=== PATIENT | female | born 1955 | race Caucasian/White ===

== ENCOUNTER → 2019-06-23 07:09 | Outpatient (CLI) | payer OTHER, SELFPAY ==
[2019-06-23 07:12] LABS: Bacteria 0 SEEN /hpf (None Seen); Mucous, Urine 0 SEEN /hpf (<or=2+); Red Blood Cells-Urine 0 SEEN /hpf (0-5); White Blood Cells 0 SEEN /hpf (0-5)
[2019-06-23 10:01] LABS: Color, Urine Yellow (Yellow); Glucose, Dipstick Normal (Normal); Ketone-Dipstick Negative (Negative); Leukocyte Esterase-Dipstick 25 /ul (Negative); Nitrite-Dipstick Negative (Negative); Occult Blood-Urine Negative /ul (Negative); Protein-Dipstick Negative (Negative); Urine Bilirubin Dipstick Negative (Negative); Urine Clarity Clear (Clear); Urine Urobilinogen Normal (Normal)
[2019-06-23 10:14] LABS: Absolute Lymphocyte Count 1.24 X10^3/uL (0.83-4.51); Absolute Neutrophil Count 3.4 X10^3/uL (2.0-7.7); Basophil# 0.04 X10^3/uL; Basophil% 0.8 % (0-1); Eosinophil# 0.05 X10^3/uL; Hematocrit 41.3 % (37-47); Hemoglobin 13.6 g/dL (12.0-15.0); Lymphocyte # 1.24 X10^3/ul (4.0); Mean Corp Hgb Conc 32.9 g/dL (32-36); Mean Corpuscular Hgb 30.7 pg (27.0-32.0); Mean Corpuscular Volume 93.2 fL (81-99); Mean Platelet Vol. 11.2 fl (6.2-12.0); Monocyte# 0.42 X10^3/uL; Monocyte% 8.1 % (0-10); NRBC Flagged by Analyzer 0 % (0-5); Neutrophil # 3.41 X10^3/uL (2.7-7.7); Neutrophil % 65.9 % (47-70); Platelet Count 219 K/mm3 (150-450); RBC Distribution Width CV 12.5 % (11.6-14.6); Red Blood Count 4.43 M/mm3 (4.2-5.4); White Blood Count 5.2 K/mm3 (4.4-11.0)
[2019-06-23 10:19] LABS: Squamous Epithelial Cells - UA 0-5 SEEN /hpf (5-10)
[2019-06-23 10:24] LABS: Vitamin B12 543 pg/mL (211-911)
[2019-06-23 10:32] LABS: AST(SGOT) 15 U/L (15-37); Alanine Aminotransfer ALT/SGPT 27 U/L (13-56); Albumin, Serum 3.6 g/dL (3.2-5.0); Alkaline Phosphatase 91 U/L (45-117); Anion Gap 7 (5-15); BUN 19 mg/dL (7-18); BUN/Creat Ratio 26.5 RATIO (10-20); Calcium,Total 8.8 mg/dL (8.5-10.1); Chloride 109 mmol/L (98-107); Cholesterol 204 mg/dL (200); Creatinine, Serum 0.72 mg/dL (0.55-1.02); EST Glomerular Filtration Rate 87 mL/min (>60); Est Glom Filt Rate - Afr Amer 105 mL/min (>60); Globulin 3.6 g/dL (2.2-4.2); Glucose 85 mg/dL (74-106); High Density Lipoprotein 85 mg/dL; Potassium 4.1 mmol/L (3.5-5.1); Protein, Total 7.2 g/dL (6.4-8.2); Sodium Level 143 mmol/L (136-145); Thyroid Stim Hormone (TSH) 2.13 uIU/mL (0.358-3.74); Triglycerides 78 mg/dL; Very Low Density Lipoprotein 16 mg/dL (5-40)
[2019-06-26 16:05] LABS: Vitamin B1, Thiamine 186.7 nmol/L (66.5-200.0)
== END ==
PROVIDERS: PCP Family Medicine; Referring Provider Family Medicine; Visit Provider Family Medicine
DX: E53.9 Vitamin B deficiency, unspecified (principal); E55.9 Vitamin D deficiency, unspecified; I10 Essential (primary) hypertension
CPT/HCPCS: 36415; 80053; 80061; 81001; 82306; 82607; 84425; 84443; 85025

== ENCOUNTER → 2019-07-05 08:34 | Outpatient (CLI) | payer OTHER, SELFPAY | PROVIDERS: PCP Family Medicine; Referring Provider Family Medicine; Visit Provider Family Medicine | DX: E53.9 Vitamin B deficiency, unspecified (principal); E55.9 Vitamin D deficiency, unspecified; I10 Essential (primary) hypertension ==

== ENCOUNTER → 2019-07-20 | Outpatient (CLI) | payer OTHER, SELFPAY ==
[2019-07-20 09:59] LABS: Phosphorus 3.3 mg/dL (2.5-4.9)
== END | disposition home or self-care (01) ==
LOC: MFPLAB 08:26
PROVIDERS: PCP Family Medicine; Visit Provider Family Medicine
DX: M85.80 Other specified disorders of bone density and structure, unspecified site (principal)
CPT/HCPCS: 36415; 84100

== ENCOUNTER → 2019-08-09 07:46 | Outpatient (CLI) | payer MEDICARE, SELFPAY ==
--- NOTE | 2019-08-09 07:49 | BI_ITS ---
MAMMOGRAPHY - BILATERAL SCREENING REASON FOR EXAM: Female, 64 years old. Routine annual screening examination. PERTINENT HISTORY: Non-contributory. TECHNIQUE: Digital bilateral breast valeri (3D mammographic acquisition) in the CC and MLO projections. 2-D mediolateral oblique (MLO) and craniocaudad (CC) views of both breasts were obtained. CAD: Full Field Digital Mammography with Computer Added Detection was performed. COMPARISON: Comparison is made with prior outside examination dated July 07, 2016. FINDINGS: Breast Composition: The breasts are heterogeneously dense, which may obscure small masses. There are no dominant masses or suspicious calcifications. There is a 7.5 mm x 5.4 mm well-defined nodule in the slightly upper lateral portion of the left breast. Correlation with ultrasound is recommended. Stable benign-appearing bilateral axillary lymph nodes. No other significant abnormalities are identified. BI/SCREEN MAMM (CAD) W/VALERI BILAT IMPRESSION: 7.5 mm x 5.4 mm well-defined nodule in the upper lateral aspect of the right breast as described. Correlation with ultrasound is recommended. ASSESSMENT CATEGORY: BIRADS Category 0: Incomplete. Need additional imaging evaluation. A letter regarding these results will be sent to the patient by the facility within 30 days. Approximately 10% of breast cancers are not detected by mammography. A normal mammogram should not delay biopsy of a clinically suspicious abnormality. [id number] Electronically Signed: Naga Parks, at 8:18 EDT , Service support ,
--- NOTE | 2019-08-09 08:22 | BD_ITS ---
STUDY: DUAL ENERGY X-RAY ABSORPTIOMETRY / DXA REASON FOR EXAM: Female, 64 years old. QUILT SEWER -- TALES DIURETIC IN BP MED -- HX OF TAKING STEROID MEDS DURING BRAIN RADIATION- GAMMA KNIFE -- TAKES VITAMIN D -- DOES MODERATE AMOUNT OF EXERCISE -- NO STACEY TECHNIQUE: Bone Mineral Density (BMD) measurements of lumbar spine and bilateral hips were obtained. COMPARISON: None. FINDINGS: Lumbar Spine (L1-L4): g/cm2 (1.013) / T-score (-1.4) / Z-score (0.2) Findings are suggestive of osteopenia with a low fracture risk. Increased kyphosis. Left Femur Total: g/cm2 (0.792) / T-score (-1.7) / Z-score (-0.5) Left Femoral Neck: g/cm2 (0.836) / T-score (-1.5) / Z-score (0.0) Right Femur Total: g/cm2 (0.749) / T-score (-2.1) / Z-score (-0.9) Right Femoral Neck: g/cm2 (0.820) / T-score (-1.6) / Z-score (-0.1) BD/Dexa Bone Density Study IMPRESSION: The patient is considered osteopenic as outlined below according to World [employer] Organization (WHO) criteria with a moderate fracture risk. Reference Information: The T-score is the number of standard deviations above or below the standard which is normal for young adults at their peak bone mineral density. The World Health Organization (WHO) interprets the T-scores as follows: Above -1 Normal bone density Between -1 and -2.5 Osteopenia Equal to / or below -2.5 Osteoporosis As a practical clinical guideline, osteopenia may be graded as follows: Mild -1 through -1.5 Moderate -1.6 through -2.0 Severe -2.1 through -2.4 The Z-score is the number of standard deviations above or below age-matched controls. A Z-score of less than -1.5 would be considered abnormal. References: 1. NIH Osteoporosis and Related Bone Diseases http://www.osteo.org 2. International Society for Clinical Densitometry http://www.iscd.org 3. National Osteoporosis Foundation http://www.nof.org Electronically Signed: Naga Parks, at 9:41 EDT , Service support ,
== END ==
PROVIDERS: PCP Family Medicine; Referring Provider Family Medicine; Visit Provider Family Medicine
DX: Z12.31 Encounter for screening mammogram for malignant neoplasm of breast (principal); M85.80 Other specified disorders of bone density and structure, unspecified site
CPT/HCPCS: 77063; 77067; 77080

== ENCOUNTER → 2019-08-18 | Outpatient (CLI) | payer MEDICARE, SELFPAY ==
--- NOTE | 2019-08-18 08:28 | US_ITS ---
STUDY: ULTRASOUND BREAST - LEFT REASON FOR EXAM: Female, 64 years old. Abnormal screening mammogram. TECHNIQUE: Axial and longitudinal images of the LEFT breast were performed with a high resolution ultrasound transducer. # OF IMAGES: 11 COMPARISON: Comparison is made with prior mammogram dated August 09, 2019. FINDINGS: LEFT Breast: The mammographic abnormality corresponds to an 8 mm x 6 mm x 5 mm cyst at the 2:00 position of the breast at 3 cm from nipple. US/Breast Limited Unilateral IMPRESSION: The mammographic abnormality corresponds to an 8 mm x 6 mm x 5 mm cyst at the 2:00 position breast at 3 cm from nipple. ASSESSMENT CATEGORY: BIRADS Category 2: Benign. A letter regarding these results will be sent to the patient by the facility within 30 days. Electronically Signed: Naga Parks, at 10:18 EDT , Service support ,
== END | disposition home or self-care (01) ==
LOC: OPUS 08:28
PROVIDERS: PCP Family Medicine; Referring Provider Family Medicine; Visit Provider Family Medicine
DX: N63.21 Unspecified lump in the left breast, upper outer quadrant (principal)
CPT/HCPCS: 76642

== ENCOUNTER → 2019-10-23 | Outpatient (CLI) | payer MEDICARE, SELFPAY ==
[2019-10-19 15:42] VITALS: BMI 28.4
== END | disposition home or self-care (01) ==
LOC: PSN 08:54
PROVIDERS: PCP Family Medicine; Referring Provider Internal Medicine Cardiovascular Disease; Visit Provider Internal Medicine Cardiovascular Disease
DX: I49.49 Other premature depolarization (principal); R94.31 Abnormal electrocardiogram [ECG] [EKG]; I10 Essential (primary) hypertension
CPT/HCPCS: 93225; 93226

== ENCOUNTER → 2019-10-25 09:26 | Outpatient (CLI) | payer MEDICARE, SELFPAY ==
[2019-10-19 15:42] VITALS: BMI 28.4
--- NOTE | 2019-10-25 09:38 | RAD_ITS ---
STUDY: X-RAY CHEST REASON FOR EXAM: Female, 64 years old. Abnormal EKG. Hypertension. TECHNIQUE: Frontal and lateral views of the chest COMPARISON: None. FINDINGS: The lungs are clear. There are no pleural effusions. There is no pneumothorax. The heart is normal in size. The visualized osseous structures are within normal limits. RAD/Chest PA and Lateral IMPRESSION: No acute thoracic pathology. Electronically Signed: Antolin Cat, at 17:26 EDT Tel , Service support ,
== END ==
PROVIDERS: PCP Family Medicine; Referring Provider Internal Medicine Cardiovascular Disease; Visit Provider Internal Medicine Cardiovascular Disease
DX: R94.31 Abnormal electrocardiogram [ECG] [EKG] (principal); I10 Essential (primary) hypertension; I49.49 Other premature depolarization
CPT/HCPCS: 71046

== ENCOUNTER → 2019-11-01 | Outpatient (CLI) | payer MEDICARE, SELFPAY ==
[2019-10-19 15:42] VITALS: BMI 28.4
--- NOTE | 2019-11-01 13:52 | ECHOD_ITS ---
Reason For Study: Arrhythmia Procedure This was a 2D Doppler, Color Flow transthoracic echocardiogram. The exam was of adequate technical quality. Exam performed in department. Left Ventricle Normal LV size. Left ventricular systolic function is normal. The estimated ejection fraction is 65 %. No evidence for diastolic dysfunction. No regional wall motion abnormalities noted. Right Ventricle Normal RV size. Normal systolic function. Atria Normal left atrium. Normal right atrium. No doppler evidence for ASD. Mitral Valve There is no mitral annular calcification. Normal mitral valve. Trivial mitral valve insufficiency. Tricuspid Valve Normal tricuspid valve. Mild tricuspid valve insufficiency. Right ventricular systolic pressure estimated to be 28 mmHg. Aortic Valve Trisinus/trileaflet aortic valve. Normal aortic valve. Pulmonic Valve The pulmonic valve is not well visualized. Trivial pulmonic valve insufficiency. Great Vessels The aortic root is not well visualized. Pericardium/Pleural No pericardial effusion. MMode/2D Measurements & Calculations LVIDd: 3.3 cm IVSd: 1.0 cm LA dimension: 3.1 cm LVIDs: 2.1 cm LVPWd: 1.0 cm RVDd: 3.3 cm FS: 36.2 % LAV(MOD-bp): 30.6 ml LA A4 area: 12.9 cm2 RA A4 area: 12.3 cm2 LAV(MOD-bp) Indexed: 18.0 ml/m2 LAV(MOD-sp2): 32.5 ml LAV(MOD-sp4): 28.1 ml Time Measurements MV dec time: 0.18 sec Doppler Measurements & Calculations MV E max naman: 67.7 cm/sec Lat Peak E' Naman: 10.1 cm/sec Med Peak E' Naman: 8.6 cm/sec MV A max naman: 53.7 cm/sec E/E' lat: 6.7 E/E' med: 7.8 MV E/A: 1.3 Ao V2 max: 146.9 cm/sec LV V1 max: 119.2 cm/sec PA V2 max: 101.9 cm/sec Ao max P.6 mmHg LV V1 max P.7 mmHg TR max naman: 242.3 cm/sec TR max P.5 mmHg Interpretation Summary Left ventricular systolic function is normal. The estimated ejection fraction is 65 %. Trivial mitral valve insufficiency. Mild tricuspid valve insufficiency. Trivial pulmonic valve insufficiency. Right ventricular systolic pressure estimated to be 28 mmHg. No evidence for diastolic dysfunction. Ordering Physician: Romeo John Referring Physician: Bernard Dalal Performed By: Lillian Collins, RDCS, RVT
== END | disposition home or self-care (01) ==
LOC: CVS 13:52
PROVIDERS: PCP Family Medicine; Referring Provider Internal Medicine Cardiovascular Disease; Visit Provider Internal Medicine Cardiovascular Disease
DX: I49.49 Other premature depolarization (principal); R94.31 Abnormal electrocardiogram [ECG] [EKG]; I10 Essential (primary) hypertension; I49.9 Cardiac arrhythmia, unspecified
CPT/HCPCS: 93306

== ENCOUNTER → 2019-11-29 | Outpatient (CLI) | payer MEDICARE, SELFPAY ==
[2019-10-19 15:42] VITALS: BMI 28.4
[2019-11-29 13:02] LABS: ALB/GLOB Ratio 0.9 RATIO (0.9-2.4); AST(SGOT) 19 U/L (15-37); Alanine Aminotransfer ALT/SGPT 29 U/L (13-56); Albumin, Serum 3.7 g/dL (3.2-5.0); Alkaline Phosphatase 83 U/L (45-117); Anion Gap 4 (5-15); BUN 21 mg/dL (7-18); BUN/Creat Ratio 26.1 RATIO (10-20); Calcium,Total 9.1 mg/dL (8.5-10.1); Chloride 105 mmol/L (98-107); EST Glomerular Filtration Rate 76 mL/min (>60); Est Glom Filt Rate - Afr Amer 92 mL/min (>60); Glucose 75 mg/dL (74-106); Phosphorus 3.8 mg/dL (2.5-4.9); Potassium 3.7 mmol/L (3.5-5.1); Protein, Total 7.7 g/dL (6.4-8.2); Sodium Level 140 mmol/L (136-145); Vitamin D,25 Hydroxy 33.2 ng/mL
== END | disposition home or self-care (01) ==
LOC: MFPLAB 10:58
PROVIDERS: PCP Family Medicine; Referring Provider Family Medicine; Visit Provider Family Medicine
DX: I10 Essential (primary) hypertension (principal); M85.80 Other specified disorders of bone density and structure, unspecified site
CPT/HCPCS: 36415; 80053; 82306; 84100

== ENCOUNTER 2020-01-27 17:39 | Emergency (ER) | payer MEDICARE, SELFPAY ==
[2019-11-30 15:07] VITALS: BMI 28.5
[2020-01-27 17:39] VITALS: BP 166/89; PULSE 97; RESP 16; TEMP 36.4; BMI 28.7
--- NOTE | 2020-01-27 17:53 | ED.VISSUMM ---
- ER Visit Summary Date of Service: 01/27/20 Chief Complaint: [Injury to the right thigh] History of Present Illness: The patient is a 64 F [presents to the emergency department with an injury to her right thigh that occurred this afternoon. 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 Patient complaining of pain and swelling to the right thigh. She denies wrecking her head or loss of consciousness. She denies neck pain, chest pain, or abdominal pain. Patient has no medical history other than some hypertension. She is not on any blood thinners.] Patient states that her spouse and family was concerned about blood clot and advised her to come to the emergency department. Physical Examination: [FAISAL GUSTAFSONMI. Cranial nerves II through XII grossly intact. TMs clear. Mucous membranes moist. No adenopathy. Cardiovascular-regular rate and rhythm without murmur or ectopy Lungs-clear to auscultation, chest wall stable without crepitus or subcu emphysema Abdomen-normoactive bowel sounds, soft, nontender, no rebound or rigidity, no peritoneal signs. Extremities-intact ?4, normal range of motion, normal pulses. Right thigh-patient has ecchymosis and bruising and hematoma to the right posterior lateral thigh. The compartments are soft. She has normal pulses at the femoral, popliteal, dorsal pedal, and posterior tibial locations. She is neurovascular intact distally. She has no bony tenderness on exam of the hip or knee. He has normal range of motion at the hip and knee.] Test Results: [None indicated] Emergency Department Course and Treatment: [She was given an Baljit wrap. ] Treatment Plan: [Patient will be given an Baljit wrap for some compression to the suspected hematoma. Patient advised on signs and symptoms of compartment syndrome and reasons to return to the emergency department. She is advised use Tylenol for discomfort. Patient to follow-up with her primary care physician within next 3 to 5 days.] Disposition: [Discharged home in stable condition] Impression: Contusion/hematoma right thigh [] This note was generated with LightTableation software. It may contain incorrect words, spelling, and punctuation that were not noted in review of the chart prior to signing ED Disposition - Plan for ED Patient: Referrals: Bernard Dalal MD [Primary Care Provider] -
--- NOTE | 2020-01-27 17:56 | ED.DEP ---
ED Disposition - Plan for ED Patient: Instructions: ED Hematoma Referrals: Bernard Dalal MD [Primary Care Provider] - 3-5 Days
== END 2020-01-27 18:22 | disposition home or self-care (01) ==
LOC: ED 18:16
PROVIDERS: Emergency Provider Emergency Medicine; PCP Family Medicine
DX: S70.11XA Contusion of right thigh, initial encounter (principal); I10 Essential (primary) hypertension; W11.XXXA Fall on and from ladder, initial encounter; Y93.89 Activity, other specified; Y92.008 Other place in unspecified non-institutional (private) residence as the place of occurrence of the external cause; Y99.8 Other external cause status
CPT/HCPCS: 99282

== ENCOUNTER → 2020-05-28 10:10 | Outpatient (CLI) | payer MEDICARE, SELFPAY ==
[2020-05-28 10:15] LABS: Bacteria 0 SEEN /hpf (None Seen); Mucous, Urine 0 SEEN /hpf (<or=2+); Red Blood Cells-Urine 0 SEEN /hpf (0-5); Squamous Epithelial Cells - UA 0 SEEN /hpf (5-10); White Blood Cells 0 SEEN /hpf (0-5)
[2020-05-28 12:11] LABS: Color, Urine Yellow (Yellow); Glucose, Dipstick Normal (Normal); Ketone-Dipstick Negative (Negative); Leukocyte Esterase-Dipstick Negative /ul (Negative); Nitrite-Dipstick Negative (Negative); Occult Blood-Urine Negative /ul (Negative); Protein-Dipstick Negative (Negative); Urine Bilirubin Dipstick Negative (Negative); Urine Clarity Clear (Clear); Urine Urobilinogen Normal (Normal); Urine pH 6.5 (5.0 - 8.0)
[2020-05-28 12:17] LABS: Absolute Lymphocyte Count 1.67 X10^3/uL (0.83-4.51); Absolute Neutrophil Count 3.6 X10^3/uL (2.0-7.7); Basophil# 0.06 X10^3/uL; Eosinophil# 0.08 X10^3/uL; Eosinophils% 1.4 % (0-5); Hematocrit 44.1 % (37-47); Hemoglobin 14.4 g/dL (12.0-15.0); Lymphocyte # 1.67 X10^3/ul (4.0); Lymphocyte % 28.6 % (19-41); Mean Corp Hgb Conc 32.7 g/dL (32-36); Mean Corpuscular Hgb 30.5 pg (27.0-32.0); Mean Corpuscular Volume 93.4 fL (81-99); Mean Platelet Vol. 11.2 fl (6.2-12.0); Monocyte# 0.41 X10^3/uL; NRBC Flagged by Analyzer 0 % (0-5); Neutrophil # 3.59 X10^3/uL (2.7-7.7); Neutrophil % 61.7 % (47-70); Platelet Count 265 K/mm3 (150-450); RBC Distribution Width CV 12.5 % (11.6-14.6); RBC Distribution Width SD 43.5 fl (35.1-43.9); Red Blood Count 4.72 M/mm3 (4.2-5.4); White Blood Count 5.8 K/mm3 (4.4-11.0)
[2020-05-28 12:32] LABS: Vitamin D,25 Hydroxy 28.6 ng/mL
[2020-05-28 12:43] LABS: ALB/GLOB Ratio 0.9 RATIO (0.9-2.4); AST(SGOT) 14 U/L (15-37); Alanine Aminotransfer ALT/SGPT 28 U/L (13-56); Albumin, Serum 3.7 g/dL (3.2-5.0); Alkaline Phosphatase 90 U/L (45-117); Anion Gap 6 (5-15); BUN 23 mg/dL (7-18); BUN/Creat Ratio 27.2 RATIO (10-20); Calcium,Total 9.1 mg/dL (8.5-10.1); Chloride 103 mmol/L (98-107); Cholesterol 252 mg/dL (200); Creatinine, Serum 0.85 mg/dL (0.55-1.02); EST Glomerular Filtration Rate 71 mL/min (>60); Est Glom Filt Rate - Afr Amer 86 mL/min (>60); Globulin 4.2 g/dL (2.2-4.2); Glucose 83 mg/dL (74-106); High Density Lipoprotein 81 mg/dL; Potassium 4.3 mmol/L (3.5-5.1); Protein, Total 7.9 g/dL (6.4-8.2); Sodium Level 139 mmol/L (136-145); Thyroid Stim Hormone (TSH) 2.11 uIU/mL (0.358-3.74); Triglycerides 126 mg/dL; Very Low Density Lipoprotein 25 mg/dL (5-40)
== END ==
PROVIDERS: PCP Family Medicine; Referring Provider Family Medicine; Visit Provider Family Medicine
DX: I10 Essential (primary) hypertension (principal); E55.9 Vitamin D deficiency, unspecified
CPT/HCPCS: 36415; 80053; 80061; 81001; 82306; 84443; 85025

== ENCOUNTER → 2020-09-26 13:27 | Outpatient (CLI) | payer MEDICARE, SELFPAY ==
[2020-07-17 11:10] VITALS: BMI 28.7
--- NOTE | 2020-09-26 13:29 | BI_ITS ---
MAMMOGRAPHY - BILATERAL SCREENING REASON FOR EXAM: Female, 65 years old. Routine annual screening examination. PERTINENT HISTORY: Non-contributory. TECHNIQUE: Digital bilateral breast valeri (3D mammographic acquisition) in the CC and MLO projections. 2-D mediolateral oblique (MLO) and craniocaudad (CC) views of both breasts were obtained. CAD: Full Field Digital Mammography with Computer Added Detection was performed. COMPARISON: Comparison is made with prior examination dated 08/09/2019. FINDINGS: Breast Composition: The breasts are heterogeneously dense, which may obscure small masses. There are no dominant masses or suspicious calcifications. Stable 7.2 mm x 5.4 mm well-defined nodule in the slightly upper lateral portion of the left breast. This was demonstrated to be a small cyst prior study. No other significant abnormalities are identified. There has been no significant change since the prior study. BI/SCRN MAMM (CAD)W/VALERI BILAT IMPRESSION: Stable bilateral screening mammogram. Yearly follow-up mammogram recommended. (A) ASSESSMENT CATEGORY: BIRADS Category 2: Benign. A letter regarding these results will be sent to the patient by the facility within 30 days. Approximately 10% of breast cancers are not detected by mammography. A normal mammogram should not delay biopsy of a clinically suspicious abnormality. [id number] Electronically Signed: Naga Parks MD at 14:30 EDT , Service support ,
== END ==
PROVIDERS: PCP Family Medicine; Referring Provider Family Medicine; Visit Provider Family Medicine
DX: Z12.31 Encounter for screening mammogram for malignant neoplasm of breast (principal)
CPT/HCPCS: 77063; 77067

== ENCOUNTER 2021-02-10 08:33 | Day surgery (SDC) | payer MEDICARE, SELFPAY ==
--- NOTE | 2021-02-09 23:58 | HP.PCM_ITS ---
History and Physical Date of Admission: 02/10/21 HISTORY OF PRESENT ILLNESS 65 year old woman presents with a late effect painful hematoma scar contour deformity right posterolateral thigh. Back in January,, she fell off a ladder at home and landed on her right thigh. She sustained a large hematoma at that time. She wore compression WOOD wrap with improvement in the size of the hematoma and resolution of the ecchymosis. She has persistent pain in the area. She developed a hematoma scar contour deformity and presents at this time for further evaluation and treatment. PAST MEDICAL HISTORY Contusion of right thigh, sequela Essential hypertension Fall from ladder Pain of right lateral upper thigh PAST SURGICAL HISTORY History of 2 sections History of brain surgery History of hysterectomy ALLERGIES Sulfa (Sulfonamide Antibiotics) MEDICATIONS calcium carbonate 600 mg calcium (1,500 mg) tablet 600 mg PO DAILY 10/18/19 [History Confirmed 11/12/20] cholecalciferol (vitamin D3) 50 mcg (2,000 unit) tablet 50 mcg PO DAILY 10/18/19 [History Confirmed 11/12/20] hydrochlorothiazide 25 mg tablet 25 mg PO DAILY 10/18/19 [History Confirmed 11/12/20] ascorbic acid (vitamin C) 500 mg tablet 500 mg PO DAILY 10/19/19 [History Confirmed 11/12/20] FAMILY HISTORY Father - Lung cancer SOCIAL HISTORY Smoking Status: Never smoker alcohol intake: current details: occasional substance use type: does not use REVIEW OF SYSTEMS General - Denies fever, fatigue, and weight loss. Eyes - Denies cataracts and glaucoma. ENT - Denies nasal congestion and sore throat. Endocrine - Denies excessive thirst and urination. Skin - Denies skin cancer. Has residual painful hematoma scar contour deformity right posterolateral thigh. Musculoskeletal - Denies joint pain, joint stiffness, weakness of muscles and joints, back pain, and arthritis. Neuro - Denies headaches. Cardiovascular - Denies chest pain, fatigue, and shortness of breath with exertion. Psych - Denies anxiety and depression. Respiratory - Denies chronic cough and shortness of breath. Gastrointestinal - Denies nausea, vomiting, diarrhea, and constipation. Hematologic - Denies abnormal bruising and bleeding. Genitourinary - Denies hematuria and urinary frequency. PHYSICAL EXAMINATION General - Alert and Oriented. HEENT - PERRL. EOMI. Throat is clear. Neck - Supple and nontender. No cervical adenopathy. Lungs - Clear to auscultation. Heart - Regular rate and rhythm. Abdomen - Soft and nondistended. Extremities - FROM. No axillary adenopathy. Radial pulses are palpable. No inguinal adenopathy. Femoral pulses palpable. On the right posterolateral thigh is a residual hematoma scar contour deformity. It measures little smaller at 13 x 12 cm. It is mobile. Overlying skin shows good elasticity. No discoloration noted. Some tenderness to palpation. Neuro - CN II-XII grossly intact. Psych - Normal mood and affect. ASSESSMENT 1. Late effect painful hematoma scar contour deformity right posterolateral thigh. 2. Fall from a ladder. PLAN Patient has a painful hematoma scar contour deformity right posterolateral thigh that she sustained after a fall from a ladder at home in January,. The hematoma scar contour deformity measures a little smaller. Discussed with the patient that it may continue to make small improvements, but ultimately it won't completely resolve. I gave her the option of continuing the compression or proceeding with surgical excision. She wants to proceed with surgery in late December at the earliest. In the meantime she will continue the compression WOOD wrap or wear compression Spanx garment. Surgery would entail excision of this deformity and sending it to Pathology for analysis to rule out carcinoma. Depending on what is seen at the time of surgery, tissue for Microbiology may be sent. A positive culture would nece ssitate antibiotic therapy. I anticipate a large cavity after excision that would require a drain placement. Sometimes power assisted lipoplasty may be beneficial as well to feather the edges to help with further contouring. Surgery will be done on an outpatient basis under general anesthesia. Patient was informed of the risks and complications of the procedure including alternatives to surgery. These were discussed with the patient personally. Patient voices understanding and wishes to proceed. Some of the risks and complications were included in a form from the [employer]. After surgery the patient states she needs no narcotics for pain. She will just take Extra Strength Tylenol. We discussed the current risks associated with COVID-19. While it is understood that there is a community spread of COVID-19, the risk of jan COVID-19 while at [facility] ([facility]) is very low; however, the risk cannot be completely mitigated because of the community spread of the disease. We discussed in detail the risk of exposure to and/or potential harm posed by the COVID-19 virus with having a surgery/procedure at this time versus the risk of delaying the surgery/procedure. It is not possible to know either the risk of delaying the surgery or procedure or chance of getting an infection with perfect accuracy, but a joint decision was made to proceed at this time with the scheduled surgery/procedure as indicated on the consent form. Patient was notified that we will need to comply with any screening or testing WC wishes to perform or that surgery may be delayed for any positive results. Procedure Criteria Procedure Type:?Elective COVID Risk Discussion: The surgeon/proceduralist and patient have discussed in detail the risk of exposure to and/or potential harm posed by the COVID-19 virus with having a surgery/procedure at this time versus the risk of delaying the surgery/ procedure.? It is not possible to know either the risk of delaying the surgery or procedure or chance of getting an infection with perfect accuracy, but a joint decision was made between the patient and the surgeon/proceduralist to proceed at this time with the scheduled surgery/procedure as indicated on the consent form.
[2021-02-10] VITALS (9 sets, daily range): BP systolic 106–151; BP diastolic 55–87; PULSE 70–93; RESP 16–20; TEMP 36.1–36.4; O2SAT 95–100; BMI 27.3
--- NOTE | 2021-02-10 | THRO_PTH ---
PATIENT: MUKUL PENALOZA LOC: [facility] [place] U#:[id number] AGE/SX: 65/F ROOM: RE02/10/[address]: Dr. Abhi Sanabria MD : 1955 BED: DIS: 02/10/2021 SPEC #: [id number] RECD: 02/10/21 14:36 STATUS: OG REJolie #: [id number] BRYAN: 02/10/21 00:[address]: Abhi Sanabria DEPT: SURGICAL PATHOLOGY RECD BY: Karri Lucia ENTERED: 02/11/21 09:13 SP TYPE: THROMBUS OTHR DR: Dr. Bernard Dalal MD Tissues: BLOOD CLOT, NOS Procedures: Surgery Specimen Level III HEADER OPERATION: Surgical preparation right posterior lateral thigh PRE-OP DIAGNOSIS: Late effect painful hematoma scar contour deformity right posterolateral thigh TISSUE SUBMITTED: Hematoma scar contour deformity right posterolateral thigh MICROSCOPIC DIAGNOSIS Hematoma scar contour deformity right posterolateral thigh: Focal fat necrosis and associated inflammation and hemorrhage . SHEREE 02/12/21 MICROSCOPIC DESCRIPTION Slides are reviewed. GROSS DESCRIPTION Received in fixative is one container labeled with the patient's name and designated Hematoma scar contour deformity right posterolateral thigh. The specimen consists of skin with underlying tissue. The skin measures 13 x 2.5 cm and the underlying tissue measures 15 x 10 x 4 cm. Also present in the container are multiple fragments of yellow adipose tissue measuring in aggregate 6 x 5 x 2 cm. The skin surface is unremarkable. Sections reveal yellow adipose cut surfaces without area of hemorrhage and without any mass lesion. Electronic Transaction Implementer sections are submitted in two cassettes. / SHEREE:asya 02/11/2021 TC:5 CPT: 45985
[2021-02-10] MEDS: Lactated Ringers 1,000 ML 15 ML IV (09:15)
[2021-02-10] MEDS: Cefazolin 2 GM in 0.9% Normal Saline 100 ML IV (10:41)
[2021-02-10] MEDS: Lidocaine 1% /Epi 1:100 (20ml) 20 ML Vial (11:09)
[2021-02-10] MEDS: Mupirocin Ointment 22gm Tube 1 APPLIC (12:24)
--- NOTE | 2021-02-10 12:45 | PCM.OPRPT ---
Problems Associated Problem List Diagnoses (1) Contusion of right thigh, sequela: (2) Pain of right lateral upper thigh: (3) Fall from ladder: Report of Operation Date of Procedure: 02/10/21 Pre-Operative Diagnosis: 1. Late effect painful hematoma indentation scar contour deformity right posterolateral thigh. 2. Fall from a ladder. Post-Operative Diagnosis: Same. Surgery/Procedure Performed:: Surgical preparation right posterolateral thigh with incision and drainage and excision painful hematoma indentation scar contour deformity with 15 cm complex secondary wound closure. Description of Surgical Findings:: 65 year old woman presents with a late effect painful hematoma scar contour deformity right posterolateral thigh. Back in January,, she fell off a ladder at home and landed on her right thigh. She sustained a large hematoma at that time. She wore compression WOOD wrap with improvement in the size of the hematoma and resolution of the ecchymosis. She has persistent pain in the area. She developed a painful hematoma indentation scar contour deformity. Patient was informed of the risks and complications of the procedure including alternatives to surgery. These were discussed with the patient personally. Patient voices understanding and wishes to proceed. Some of the risks and complications were included in a form from the [employer]. I used Latrell absorbable hemostat, (I used 2 vials). Reference Number - [id number]. Lot Number - [id number]. Expiration - August 16, 2025. Reference Number - [id number]. Lot Number - [id number]. Expiration - November 16, 2025. I used Tumescent Anesthetic Solution 0.05%, (300 ml). Normal Saline- 936.5 ml. Lidocaine 1% - 50 ml. Epinephrine (1 mg/ml) - 1 ml. Sodium Bicarbonate - 12.5 mEq I removed 250 ml fatty aspirate from the inferolateral right thigh area. Surgeon: Abhi Sanabria senior billing consultant: None Type of Anesthesia: General Specimen's removed: Painful hematoma indentation scar contour deformity right posterolateral thigh to Pathology and Microbiology. Drains: Sebastián. Estimated Blood Loss (mL): 50. Description of Procedure: Patient was taken to OR in supine position and was placed under general anesthesia. She was then placed in the lateral position. The right posterolateral thigh was prepped and draped in the usual fashion. SCD's were placed for DVT prophylaxis. Perioperative antibiotics were given intravenously. Using xylocaine with epinephrine, the right posterolateral thigh over the hematoma deformity was infiltrated. After waiting 5 minutes for the anesthetic to take effect, I made a longitudinal elliptical incision down into the subcutaneous tissue. The tissue was firm. I excised the deep subcutaneous tissue down to the muscle. The capsule from the hematoma was seen and it was adherent to the tensor fascia jesenia. A capsulotomy was made and some residual serosanguinous fluid and some hematoma clot was drained and evacuated. A capsulectomy was done off the tensor fascia jesenia. The tissue and fluid was sent to Pathology for analysis to rule out carcinoma and to Microbiology for culture. A positive culture will necessitate antibiotic therapy. The wound was irrigated with saline. Hemostasis was obtained with electrocautery. It was a large cavity so I placed a size 15 Sebastián drain through a separate incision inferior to the wound and secured to the skin with 3-0 Nylon suture. I sprayed Latrell absorbable hemostat into the wound to minimize seroma formation. I used 2 vials. The size of the wound after incision and drainage and excision of the painful hematoma indentation scar contour deformity was 15 x 8 cm or 120 cm2. I closed the wound in multiple layers with 3-0 Vicryl figure of eight interrupted sutures for the underlying fascia. The deep dermis and subcutaneous tissue was approximated with with3-0 Vicryl interrupted sutures. The skin was approximated with 3-0 V lock unidirectional barbed running subcuticular suture. The length of the incision for complex closure was 15 cm. To help feather out and improve the contouring at the inferior end of the incision, I used power assisted lipoplasty to help with the contouring in this area. I used the existing wound for the infiltration of the tumescent solution into the inferior aspect of the incision. I infiltrated about 300 mL into the area. I then used power-assisted lipoplasty and removed about 250 mL of fatty aspirate from the inferior aspect of the incision. I stopped when there was minimal friction and the areas felt clinically smooth and started developing some blood in the aspirate. I then placed Histoacryl skin tissue adhesive over the incision. The incision was dressed with Kerlix gauze followed by a compression wood wrap. Patient tolerated the procedure well and was sent to PACU in satisfactory condition. Patient will be sent home on antibiotics and pain medication and Valium for spasm. She will keep her right leg elevated when sitting. Patient will followup in a week for a wound check and for discussion of the pathology report and microbiology report. A positive culture will necessitate antibiotic therapy. Grafts/Implants Used: Latrell Complications None. Admit VTE Documentation VTE Present on Admission: No VTE Mechan Device Prophylaxis: SCD's VTE Pharm Prophylaxis ordered?: No Addendum Addendum: Surgery Charges CPT - 60853 ICD-10 code - S70.11xS, M79.651, W11.xxxA 29330 S70.11xS, M79.651, W11.xxxA 92992 S70.11xS, M79.651, W11.xxxA
--- NOTE | 2021-02-10 13:12 | PCM.DC ---
Discharge Instructions Diet Discharge Diet: No restrictions Activity Discharge Activity: May Not Drive (until the drain is removed.), May Not Shower (until the drain is removed.) and - (No standing. Patient may ambulate. When she gets to her destination, she needs to sit and elevate right leg.) May shower in (days): 10 (after the drain is removed. Or she can place a garbage bag over her abhijit wrap and secure it to the buttock and shower sooner. The goal is to minimize the drain getting wet.) May resume sexual activity in: 10-14 days Weight Bearing Status: Weight bearing as tolerated Keep extremity elevated above heart level: Right Leg Dressing / Incision Call your doctor if your incision/area has: Continuous Slow Oozing, Sudden Increased Bleeding, Increased Pain/ Swelling, Increased Redness, Foul Smelling Discharge and Swelling at the incision site Call your doctor if you observe: Fever of 101 or Higher, Coldness, Increased Pain, Shortness of breath, Chest pain, Calf discomfort and Uncontrolled pain Suture Line Care: - (after operative dressing removed in the office, apply dry dressing daily to the incision followed by compression abhijit wrap.) Remove Dressing in: do not remove dressing (will remove the operative dressing in the office.) Cleanse incision/area with: - (may get incision wet in the shower after the drain is removed. In the meantime, can place garbage bag over the right lower extremity and secure it to the buttock when showering.) Drain: Suction (empty and record output daily.) Follow Up Care Please Follow Up With: Abhi Sanabria MD When: one week. call [phone] for appt. Test Results: Test results from this visit will be discussed in further detail at your follow-up appointment, if applicable. Discharge Plan Admission Primary Reason for Your Visit: painful hematoma indentation scar contour deformity rt posterolateral thigh Attending Provider: Abhi Sanabria Primary Care Provider: Bernard Dalal Discharge Orders/Prescriptions Prescriptions: New cefadroxil 500 mg capsule 500 mg PO BID Qty: 28 RF: 0 oxycodone-acetaminophen [Percocet] 5-325 mg tablet 1 tab PO Q4H PRN (Reason: pain (scale score 7-10)) 7 Days Qty: 40 RF: 0 diazepam [Valium] 5 mg tablet 5 mg PO BID PRN (Reason: spasms) Qty: 14 RF: 0 L.acidoph,saliva-B.bif-S.therm [Acidophilus Probiotic Blend] 175 mg capsule 1 cap PO DAILY Qty: 20 RF: 0 Continued ascorbic acid (vitamin C) 500 mg tablet 500 mg PO DAILY RF: 0 calcium carbonate [Calcium 600] 600 mg calcium (1,500 mg) tablet 600 mg PO DAILY RF: 0 hydrochlorothiazide 25 mg tablet 25 mg PO DAILY RF: 0 cholecalciferol (vitamin D3) 50 mcg (2,000 unit) tablet 50 mcg PO DAILY RF: 0 Referrals / Follow Up: Bernard Dalal MD [Primary Care Provider] - Disposition Disposition (needs filled in before D/C Order can be placed): Home, Self Care
== END 2021-02-10 16:29 | disposition home or self-care (01) ==
LOC: SDC 08:36 → AC 08:36
PROVIDERS: PCP Family Medicine; Referring Provider Surgery; Visit Provider Surgery
PROC: (CPT 11406; principal; 2021-02-10 10:10)
PROC: (CPT 11406; 2021-02-10 10:10)
DX: S70.11XS Contusion of right thigh, sequela (principal); L90.5 Scar conditions and fibrosis of skin; M79.651 Pain in right thigh; I10 Essential (primary) hypertension; Z79.899 Other long term (current) drug therapy; W11.XXXS Fall on and from ladder, sequela
CPT/HCPCS: 01250; 11406; 12035; 27301; 87070; 87075; 87102; 87176; 87205; 87206; 88304; J7030; J7120; J2405

== ENCOUNTER → 2021-03-18 08:38 | Outpatient (CLI) | payer MEDICARE, SELFPAY ==
[2021-03-18 08:41] LABS: Bacteria 0 SEEN /hpf (None Seen); Mucous, Urine 0 SEEN /hpf (<or=2+); Red Blood Cells-Urine 0 SEEN /hpf (0-5); White Blood Cells 0 SEEN /hpf (0-5)
[2021-03-18 09:45] LABS: Color, Urine Yellow (Yellow); Glucose, Dipstick Normal (Normal); Ketone-Dipstick Negative (Negative); Leukocyte Esterase-Dipstick Negative /ul (Negative); Nitrite-Dipstick Negative (Negative); Occult Blood-Urine Negative /ul (Negative); Protein-Dipstick Negative (Negative); Urine Bilirubin Dipstick Negative (Negative); Urine Clarity Clear (Clear); Urine Urobilinogen Normal (Normal)
[2021-03-18 09:46] LABS: Absolute Lymphocyte Count 1.33 X10^3/uL (0.83-4.51); Absolute Neutrophil Count 4.4 X10^3/uL (2.0-7.7); Basophil# 0.05 X10^3/uL; Basophil% 0.8 % (0-1); Eosinophil# 0.03 X10^3/uL; Eosinophils% 0.5 % (0-5); Hematocrit 43.3 % (37-47); Hemoglobin 14.4 g/dL (12.0-15.0); Lymphocyte # 1.33 X10^3/ul (0.83-4.51); Lymphocyte % 21.5 % (19-41); Mean Corp Hgb Conc 33.3 g/dL (32-36); Mean Corpuscular Hgb 31.1 pg (27.0-32.0); Mean Corpuscular Volume 93.5 fL (81-99); Mean Platelet Vol. 10.9 fl (6.2-12.0); Monocyte# 0.34 X10^3/uL; Monocyte% 5.5 % (0-10); NRBC Flagged by Analyzer 0 % (0-5); Neutrophil # 4.41 X10^3/uL (2.7-7.7); Neutrophil % 71.2 % (47-70); Platelet Count 235 K/mm3 (150-450); RBC Distribution Width CV 12.4 % (11.6-14.6); Red Blood Count 4.63 M/mm3 (4.2-5.4); White Blood Count 6.2 K/mm3 (4.4-11.0)
[2021-03-18 09:54] LABS: Squamous Epithelial Cells - UA 0-5 SEEN /hpf (5-10)
[2021-03-18 09:58] LABS: ALB/GLOB Ratio 0.9 RATIO (0.9-2.4); AST(SGOT) 13 U/L (15-37); Alanine Aminotransfer ALT/SGPT 23 U/L (13-56); Albumin, Serum 3.4 g/dL (3.2-5.0); Alkaline Phosphatase 77 U/L (45-117); Anion Gap 8 (5-15); BUN 25 mg/dL (7-18); BUN/Creat Ratio 31.2 RATIO (10-20); Calcium,Total 8.9 mg/dL (8.5-10.1); Chloride 104 mmol/L (98-107); Cholesterol 232 mg/dL (200); EST Glomerular Filtration Rate 76 mL/min (>60); Est Glom Filt Rate - Afr Amer 92 mL/min (>60); Globulin 3.9 g/dL (2.2-4.2); Glucose 88 mg/dL (74-106); High Density Lipoprotein 80 mg/dL; Potassium 3.4 mmol/L (3.5-5.1); Protein, Total 7.3 g/dL (6.4-8.2); Sodium Level 140 mmol/L (136-145); Triglycerides 120 mg/dL; Very Low Density Lipoprotein 24 mg/dL (5-40)
[2021-03-18 10:00] LABS: Vitamin D,25 Hydroxy 25.8 ng/mL
== END ==
PROVIDERS: PCP Family Medicine; Visit Provider Family Medicine
DX: I10 Essential (primary) hypertension (principal); E55.9 Vitamin D deficiency, unspecified; E78.5 Hyperlipidemia, unspecified
CPT/HCPCS: 36415; 80053; 80061; 81001; 82306; 85025

== ENCOUNTER 2021-04-03 11:34 | Outpatient (CLI) | payer MEDICARE, SELFPAY | END 2021-04-03 23:59 | disposition short-term general hospital (02) | LOC: LABSPEC 11:36 | PROVIDERS: PCP Family Medicine; Visit Provider Nurse Practitioner Family | DX: T81.89XA Other complications of procedures, not elsewhere classified, initial encounter (principal); S70.11XS Contusion of right thigh, sequela; G89.18 Other acute postprocedural pain; W11.XXXA Fall on and from ladder, initial encounter; Z98.890 Other specified postprocedural states; Z87.2 Personal history of diseases of the skin and subcutaneous tissue | CPT/HCPCS: 87070; 87075; 87077; 87186; 87205 ==

== ENCOUNTER → 2021-10-09 | Outpatient (CLI) | payer MEDICARE, SELFPAY ==
--- NOTE | 2021-10-09 13:30 | BI_ITS ---
MAMMOGRAPHY - BILATERAL SCREENING REASON FOR EXAM: Female, 66 years old. Routine annual screening examination. PERTINENT HISTORY: Non-contributory. TECHNIQUE: Digital bilateral breast valeri (3D mammographic acquisition) in the CC and MLO projections. 2-D mediolateral oblique (MLO) and craniocaudad (CC) views of both breasts were obtained. CAD: Full Field Digital Mammography with Computer Added Detection was performed. COMPARISON: Comparison is made with prior examination dated 09/26/2020 and 08/09/2019. FINDINGS: Breast Composition: The breasts are heterogeneously dense, which may obscure small masses. There are no dominant masses or suspicious calcifications. Stable benign-appearing bilateral axillary lymph nodes. No other significant abnormalities are identified. There has been no significant change since the prior study. BI/SCRN MAMM (CAD)W/VALERI BILAT IMPRESSION: Stable bilateral screening mammogram. Yearly follow-up mammogram recommended. (A) ASSESSMENT CATEGORY: BIRADS Category 2: Benign. A letter regarding these results will be sent to the patient by the facility within 30 days. Approximately 10% of breast cancers are not detected by mammography. A normal mammogram should not delay biopsy of a clinically suspicious abnormality. [id number] Electronically Signed: Naga Parks MD at 14:52 EDT ,
--- NOTE | 2021-10-09 13:33 | BD_ITS ---
STUDY: DUAL ENERGY X-RAY ABSORPTIOMETRY / DXA REASON FOR EXAM: Female, 66 years old. M85.89 TECHNIQUE: Bone Mineral Density (BMD) measurements of lumbar spine and bilateral hips were obtained. COMPARISON: Comparison is made with prior study 08/09/2019. FINDINGS: Lumbar Spine (L1-L4): g/cm2 (0.853) / T-score (-1.8) / Z-score (0.2) Findings are suggestive of osteopenia with a moderate fracture risk. Left Femur Total: g/cm2 (0.764) / T-score (-1.5) / Z-score (-0.1) Left Femoral Neck: g/cm2 (0.697) / T-score (-1.4) / Z-score (0.3) Right Femur Total: g/cm2 (0.707) / T-score (-1.9) / Z-score (-0.6) Right Femoral Neck: g/cm2 (0.685) / T-score (-1.5) / Z-score (0.2) The T-Scores on the most recent prior examination were: Lumbar Spine (L1-L4): There has been worsening of bone density since the previous examination. Left Femur Total: which represents an improvement of 4.3%. Right Femur Total: which represents an improvement of 2.5%. BD/Dexa Bone Density Study IMPRESSION: The patient is considered osteopenic as outlined below according to World [employer] Organization (WHO) criteria with a moderate fracture risk. There has been improvement of bone density since the previous examination. Reference Information: The T-score is the number of standard deviations above or below the standard which is normal for young adults at their peak bone mineral density. The World Health Organization (WHO) interprets the T-scores as follows: Above -1 Normal bone density Between -1 and -2.5 Osteopenia Equal to / or below -2.5 Osteoporosis As a practical clinical guideline, osteopenia may be graded as follows: Mild -1 through -1.5 Moderate -1.6 through -2.0 Severe -2.1 through -2.4 The Z-score is the number of standard deviations above or below age-matched controls. A Z-score of less than -1.5 would be considered abnormal. References: 1. NIH Osteoporosis and Related Bone Diseases www osteo.org 2. International Society for Clinical Densitometry www iscd.org 3. National Osteoporosis Foundation www nof.org Electronically Signed: Naga Parks MD at 15:22 EDT ,
== END | disposition home or self-care (01) ==
LOC: OPBD 13:26
PROVIDERS: PCP Family Medicine; Referring Provider Family Medicine; Visit Provider Family Medicine
DX: Z12.31 Encounter for screening mammogram for malignant neoplasm of breast (principal); M85.89 Other specified disorders of bone density and structure, multiple sites
CPT/HCPCS: 77063; 77067; 77080

== ENCOUNTER → 2022-03-10 | Outpatient (CLI) | payer MEDICARE, SELFPAY ==
[2022-03-10 12:35] LABS: Absolute Neutrophil Count 4.1 X10^3/uL (2.0-7.7); Basophil# 0.05 X10^3/uL; Basophil% 0.8 % (0-1); Eosinophil# 0.08 X10^3/uL; Eosinophils% 1.3 % (0-5); Hematocrit 43.4 % (37-47); Hemoglobin 14.4 g/dL (12.0-15.0); Lymphocyte % 24.2 % (19-41); Mean Corp Hgb Conc 33.2 g/dL (32-36); Mean Corpuscular Hgb 30.9 pg (27.0-32.0); Mean Corpuscular Volume 93.1 fL (81-99); Mean Platelet Vol. 10.9 fl (6.2-12.0); Monocyte# 0.42 X10^3/uL; Monocyte% 6.8 % (0-10); NRBC Flagged by Analyzer 0 % (0-5); Neutrophil # 4.12 X10^3/uL (2.7-7.7); Neutrophil % 66.6 % (47-70); Platelet Count 249 K/mm3 (150-450); RBC Distribution Width CV 12.4 % (11.6-14.6); RBC Distribution Width SD 42.9 fl (35.1-43.9); Red Blood Count 4.66 M/mm3 (4.2-5.4); White Blood Count 6.2 K/mm3 (4.4-11.0)
[2022-03-10 12:55] LABS: Vitamin D,25 Hydroxy 30.9 ng/mL
[2022-03-10 12:58] LABS: AST(SGOT) 15 U/L (15-37); Alanine Aminotransfer ALT/SGPT 30 U/L (13-56); Albumin, Serum 3.6 g/dL (3.2-5.0); Alkaline Phosphatase 85 U/L (45-117); Anion Gap 7 (5-15); BUN 26 mg/dL (7-18); BUN/Creat Ratio 28.2 RATIO (10-20); Calcium,Total 8.8 mg/dL (8.5-10.1); Chloride 102 mmol/L (98-107); Cholesterol 211 mg/dL (200); Creatinine, Serum 0.92 mg/dL (0.55-1.02); EST Glomerular Filtration Rate 65 mL/min (>60); Est Glom Filt Rate - Afr Amer 78 mL/min (>60); Globulin 3.5 g/dL (2.2-4.2); Glucose 87 mg/dL (74-106); High Density Lipoprotein 78 mg/dL; Protein, Total 7.1 g/dL (6.4-8.2); Sodium Level 138 mmol/L (136-145); Triglycerides 91 mg/dL; Very Low Density Lipoprotein 18 mg/dL (5-40)
== END | disposition home or self-care (01) ==
LOC: MFPLAB 09:50
PROVIDERS: PCP Family Medicine; Referring Provider Family Medicine; Visit Provider Family Medicine
DX: E78.5 Hyperlipidemia, unspecified (principal); E55.9 Vitamin D deficiency, unspecified
CPT/HCPCS: 36415; 80053; 80061; 82306; 85025

== ENCOUNTER → 2022-10-20 | Outpatient (CLI) | payer MEDICARE, SELFPAY ==
--- NOTE | 2022-10-20 10:19 | BI_ITS ---
MAMMOGRAPHY - BILATERAL SCREENING REASON FOR EXAM: Female, 67 years old. Routine annual screening examination. PERTINENT HISTORY: Non-contributory. TECHNIQUE: Digital bilateral breast vlaeri (3D mammographic acquisition) in the CC and MLO projections. 2-D mediolateral oblique (MLO) and craniocaudad (CC) views of both breasts were obtained. CAD: Full Field Digital Mammography with Computer Added Detection was performed. COMPARISON: Comparison is made with prior study dated October 09, 2021 and September 26, 2020. FINDINGS: Breast Composition: The breasts are heterogeneously dense, which may obscure small masses. There is a 7.7 mm x 5.9 mm well-defined nodule in the upper anterior lateral aspect of the left breast. This has increased slightly in size as compared to prior study. This was demonstrated to be a small cyst on prior examination. Correlation with ultrasound is recommended. Stable fat-containing lymph nodes are seen within the axilla bilaterally. No other significant abnormalities are identified. BI/SCRN MAMM (CAD)W/VALERI BILAT IMPRESSION: 7.7 mm x 5.9 mm well-defined nodule in the upper anterior lateral aspect of left breast. Correlation with ultrasound is recommended. ASSESSMENT CATEGORY: BIRADS Category 0: Incomplete. Need additional imaging evaluation. A letter regarding these results will be sent to the patient by the facility within 30 days. Approximately 10% of breast cancers are not detected by mammography. A normal mammogram should not delay biopsy of a clinically suspicious abnormality. [id number] Electronically Signed: Naga Parks MD at 12:18 EDT ,
== END | disposition home or self-care (01) ==
LOC: OPBI 10:18
PROVIDERS: PCP Family Medicine; Referring Provider Family Medicine; Visit Provider Family Medicine
DX: Z12.31 Encounter for screening mammogram for malignant neoplasm of breast (principal)
CPT/HCPCS: 77063; 77067

== ENCOUNTER → 2022-10-26 | Outpatient (CLI) | payer MEDICARE, SELFPAY ==
--- NOTE | 2022-10-26 10:58 | US_ITS ---
STUDY: ULTRASOUND BREAST - LEFT REASON FOR EXAM: Female, 67 years old. Abnormal screening mammogram. TECHNIQUE: Axial and longitudinal images of the LEFT breast were performed with a high resolution ultrasound transducer. # OF IMAGES: 11 COMPARISON: Comparison is made with prior mammogram dated October 20, 2022. FINDINGS: LEFT Breast: The mammographic abnormality corresponds to an 8 mm x 7 mm x 5 mm cyst at the 2:00 position of the breast at 3 cm from the nipple. US/Breast Limited Unilateral IMPRESSION: 8 mm x 7 mm x 5 mm cyst at the 2:00 position of the breast at 3 cm from the nipple. This corresponds to the mammographic abnormality. ASSESSMENT CATEGORY: BIRADS Category 2: Benign. A letter regarding these results will be sent to the patient by the facility within 30 days. Electronically Signed: Naga Parks MD at 12:25 EDT ,
== END | disposition home or self-care (01) ==
PROVIDERS: PCP Family Medicine; Referring Provider Family Medicine; Visit Provider Family Medicine
DX: R92.8 Other abnormal and inconclusive findings on diagnostic imaging of breast (principal)
CPT/HCPCS: 76642

== ENCOUNTER → 2023-03-05 | Outpatient (CLI) | payer MEDICARE, SELFPAY ==
[2023-03-05 10:19] LABS: Absolute Lymphocyte Count 1.55 X10^3/uL (0.83-4.51); Absolute Neutrophil Count 3.9 X10^3/uL (2.0-7.7); Basophil# 0.04 X10^3/uL; Basophil% 0.7 % (0-1); Eosinophil# 0.04 X10^3/uL; Eosinophils% 0.7 % (0-5); Hematocrit 43.7 % (37-47); Lymphocyte # 1.55 X10^3/ul (0.83-4.51); Lymphocyte % 26.2 % (19-41); Mean Corpuscular Hgb 30.6 pg (27.0-32.0); Mean Corpuscular Volume 95.6 fL (81-99); Mean Platelet Vol. 11.2 fl (6.2-12.0); Monocyte# 0.39 X10^3/uL; Monocyte% 6.6 % (0-10); NRBC Flagged by Analyzer 0 % (0-5); Neutrophil # 3.88 X10^3/uL (2.7-7.7); Neutrophil % 65.6 % (47-70); Platelet Count 246 K/mm3 (150-450); RBC Distribution Width CV 12.7 % (11.6-14.6); RBC Distribution Width SD 44.7 fl (35.1-43.9); Red Blood Count 4.57 M/mm3 (4.2-5.4); White Blood Count 5.9 K/mm3 (4.4-11.0)
[2023-03-05 10:45] LABS: Vitamin D,25 Hydroxy 39.2 ng/mL
[2023-03-05 10:58] LABS: ALB/GLOB Ratio 0.9 RATIO (0.9-2.4); AST(SGOT) 17 U/L (15-37); Alanine Aminotransfer ALT/SGPT 18 U/L (13-56); Albumin, Serum 3.4 g/dL (3.2-5.0); Alkaline Phosphatase 76 U/L (45-117); Anion Gap 5 (5-15); BUN 22 mg/dL (7-18); BUN/Creat Ratio 29.4 RATIO (10-20); Calcium,Total 8.5 mg/dL (8.5-10.1); Chloride 108 mmol/L (98-107); Cholesterol 211 mg/dL (200); Creatinine, Serum 0.75 mg/dL (0.55-1.02); EST Glomerular Filtration Rate 82 mL/min (>60); Est Glom Filt Rate - Afr Amer 99 mL/min (>60); Globulin 3.9 g/dL (2.2-4.2); Glucose 89 mg/dL (74-106); High Density Lipoprotein 63 mg/dL; Potassium 4.1 mmol/L (3.5-5.1); Protein, Total 7.3 g/dL (6.4-8.2); Sodium Level 141 mmol/L (136-145); Thyroid Stim Hormone (TSH) 1.63 uIU/mL (0.358-3.74); Triglycerides 124 mg/dL; Very Low Density Lipoprotein 25 mg/dL (5-40)
== END | disposition home or self-care (01) ==
LOC: MFPLAB 09:08
PROVIDERS: PCP Family Medicine; Visit Provider Family Medicine
DX: E55.9 Vitamin D deficiency, unspecified (principal); I10 Essential (primary) hypertension
CPT/HCPCS: 36415; 80053; 80061; 82306; 84443; 85025

== ENCOUNTER → 2023-11-16 | Outpatient (CLI) | payer MEDICARE, SELFPAY ==
--- NOTE | 2023-11-16 13:01 | BI_ITS ---
MAMMOGRAPHY - BILATERAL SCREENING REASON FOR EXAM: Female, 68 years old. Routine annual screening examination. PERTINENT HISTORY: Non-contributory. TECHNIQUE: Digital bilateral breast valeri (3D mammographic acquisition) in the CC and MLO projections. 2-D mediolateral oblique (MLO) and craniocaudad (CC) views of both breasts were obtained. CAD: Full Field Digital Mammography with Computer Added Detection was performed. COMPARISON: Comparison is made with prior study dated October 20, 2022 and October 10, 2019. FINDINGS: Breast Composition: The breasts are heterogeneously dense, which may obscure small masses. There are no dominant masses or suspicious calcifications. Stable 7.7 mm well-defined nodule in the upper anterior lateral aspect of the left breast. This was demonstrated to be a small cyst on prior sonogram. No other significant abnormalities are identified. There has been no significant change since the prior study. BI/SCRN MAMM (CAD)W/VALERI BILAT IMPRESSION: Stable bilateral screening mammogram. Yearly follow-up mammogram recommended. (A) ASSESSMENT CATEGORY: BIRADS Category 2: Benign. A letter regarding these results will be sent to the patient by the facility within 30 days. Approximately 10% of breast cancers are not detected by mammography. A normal mammogram should not delay biopsy of a clinically suspicious abnormality. [id number] Electronically Signed: Naga Parks MD at 14:01 EDT ,
--- NOTE | 2023-11-16 13:02 | BD_ITS ---
STUDY: DUAL ENERGY X-RAY ABSORPTIOMETRY / DXA REASON FOR EXAM: Female, 68 years old. M85.89 TECHNIQUE: Bone Mineral Density (BMD) measurements of lumbar spine and bilateral hips were obtained. COMPARISON: None. FINDINGS: Lumbar Spine (L1-L4): g/cm2 (0.861) / T-score (-1.7) / Z-score (0.4) Findings are suggestive of osteopenia with a moderate fracture risk. Left Femur Total: g/cm2 (0.744) / T-score (-1.7) / Z-score (-0.2) Left Femoral Neck: g/cm2 (0.720) / T-score (-1.2) / Z-score (0.6) Right Femur Total: g/cm2 (0.709) / T-score (-1.9) / Z-score (-0.4) Right Femoral Neck: g/cm2 (0.663) / T-score (-1.7) / Z-score (0.1) The T-Scores on the most recent prior examination were: Lumbar Spine (L1-L4): There has been improvement of bone density since the previous examination. Left Femur Total: which represents a worsening of 2.7%. Right Femur Total: which represents an improvement of 0.3%. BD/Dexa Bone Density Study IMPRESSION: The patient is considered osteopenic as outlined below according to World [employer] Organization (WHO) criteria with a moderate fracture risk. There has been improvement of bone density since the previous examination. Reference Information: The T-score is the number of standard deviations above or below the standard which is normal for young adults at their peak bone mineral density. The World Health Organization (WHO) interprets the T-scores as follows: Above -1 Normal bone density Between -1 and -2.5 Osteopenia Equal to / or below -2.5 Osteoporosis As a practical clinical guideline, osteopenia may be graded as follows: Mild -1 through -1.5 Moderate -1.6 through -2.0 Severe -2.1 through -2.4 The Z-score is the number of standard deviations above or below age-matched controls. A Z-score of less than -1.5 would be considered abnormal. References: 1. NIH Osteoporosis and Related Bone Diseases www osteo.org 2. International Society for Clinical Densitometry www iscd.org 3. National Osteoporosis Foundation www nof.org Electronically Signed: Naga Parks MD at 9:55 EDT ,
== END | disposition home or self-care (01) ==
LOC: OPBD 12:59
PROVIDERS: PCP Family Medicine; Referring Provider Family Medicine; Visit Provider Family Medicine
DX: Z12.31 Encounter for screening mammogram for malignant neoplasm of breast (principal); M85.89 Other specified disorders of bone density and structure, multiple sites
CPT/HCPCS: 77063; 77067; 77080

== ENCOUNTER → 2024-05-09 | Outpatient (CLI) | payer MEDICARE, SELFPAY ==
[2024-05-09 12:17] LABS: Bacteria 0 SEEN /hpf (None Seen); Mucous, Urine 0 SEEN /hpf (<or=2+)
[2024-05-09 16:04] LABS: Color, Urine Yellow (Yellow); Glucose, Dipstick Normal (Normal); Ketone-Dipstick Negative (Negative); Leukocyte Esterase-Dipstick 25 /ul (Negative); Nitrite-Dipstick Negative (Negative); Occult Blood-Urine Negative /ul (Negative); Protein-Dipstick Negative (Negative); Specific Gravity, Urine 1.015 (1.002-1.030); Urine Bilirubin Dipstick Negative (Negative); Urine Clarity Clear (Clear); Urine Urobilinogen Normal (Normal)
[2024-05-09 16:09] LABS: Absolute Lymphocyte Count 1.59 X10^3/uL (0.83-4.51); Absolute Neutrophil Count 2.8 X10^3/uL (2.0-7.7); Basophil# 0.06 X10^3/uL; Basophil% 1.2 % (0-1); Eosinophil# 0.05 X10^3/uL; Hemoglobin 14.5 g/dL (12.0-15.0); Lymphocyte # 1.59 X10^3/ul (0.83-4.51); Lymphocyte % 31.7 % (19-41); Mean Corpuscular Volume 94.2 fL (81-99); Mean Platelet Vol. 10.9 fl (6.2-12.0); Monocyte# 0.48 X10^3/uL; Monocyte% 9.6 % (0-10); NRBC Flagged by Analyzer 0 % (0-5); Neutrophil # 2.81 X10^3/uL (2.7-7.7); Neutrophil % 56.1 % (47-70); Platelet Count 229 K/mm3 (150-450); RBC Distribution Width CV 12.8 % (11.6-14.6); RBC Distribution Width SD 43.9 fl (35.1-43.9); Red Blood Count 4.67 M/mm3 (4.2-5.4)
[2024-05-09 16:31] LABS: AST(SGOT) 22 U/L (15-37); Alanine Aminotransfer ALT/SGPT 28 U/L (13-56); Albumin, Serum 3.8 g/dL (3.2-5.0); Alkaline Phosphatase 67 U/L (45-117); Anion Gap 8 (5-15); BUN 20 mg/dL (7-18); BUN/Creat Ratio 25.4 RATIO (10-20); Calcium,Total 9.4 mg/dL (8.5-10.1); Chloride 104 mmol/L (98-107); Cholesterol 230 mg/dL (200); Creatinine, Serum 0.79 mg/dL (0.55-1.02); EST Glomerular Filtration Rate 77 mL/min (>60); Est Glom Filt Rate - Afr Amer 93 mL/min (>60); Globulin 3.7 g/dL (2.2-4.2); Glucose 80 mg/dL (74-106); High Density Lipoprotein 71 mg/dL; Magnesium 2.1 mg/dL (1.6-2.6); Protein, Total 7.5 g/dL (6.4-8.2); Sodium Level 140 mmol/L (136-145); Triglycerides 160 mg/dL; Very Low Density Lipoprotein 32 mg/dL (5-40)
[2024-05-09 16:32] LABS: Squamous Epithelial Cells - UA 0-5 SEEN /hpf (5-10)
[2024-05-09 16:33] LABS: Red Blood Cells-Urine 0-5 SEEN /hpf (0-5)
[2024-05-09 16:34] LABS: White Blood Cells 5-10 SEEN /hpf (0-5)
[2024-05-11 14:51] LABS: Vitamin D,25 Hydroxy 36.8 ng/mL
== END | disposition home or self-care (01) ==
LOC: MFPLAB 11:59
PROVIDERS: PCP Family Medicine; Referring Provider Family Medicine; Visit Provider Family Medicine
DX: I10 Essential (primary) hypertension (principal); E55.9 Vitamin D deficiency, unspecified
CPT/HCPCS: 36415; 80053; 80061; 81001; 82306; 83735; 84443; 85025

== ENCOUNTER → 2024-06-02 | Outpatient (CLI) | payer MEDICARE, SELFPAY ==
--- NOTE | 2024-06-02 13:59 | ART_ITS ---
Reason For Study Reason For Study: PVD Procedure A bilateral lower extremity continuous wave Doppler with analog waveform analysis,segmental pressures,and ankle brachial indexes with exercise. Left Segmental Pressures Left brachial= 147mmHg. Left posterior tibial artery = 141mmHg. Left dorsalis pedis artery = 158mmHg. Left digit = 80 mmHg. The left posterior tibial artery waveforms are triphasic. The left dorsalis pedis waveforms are triphasic. Right Segmental Pressures Right brachial= 148mmHg. Right posterior tibial artery = 153mmHg. Right dorsalis pedis artery = 163mmHg. Right digit = 73 mmHg. The right posterior tibial artery waveforms are triphasic. The right dorsalis pedis waveforms are triphasic. Indices The right ankle brachial index by the posterior tibial artery is 1.03. The right ankle brachial index by the dorsalis pedis is 1.10. The right digital-brachial index is 0.49. The right ankle brachial index by the dorsalis pedis post exercise is 1.10. The left ankle brachial index by the posterior tibial artery is 0.95. The left ankle brachial index by the dorsalis pedis is 1.07. The left digital-brachial index is 0.54. The left dorsalis pedis index post exercise is 1.04. VL/Lower Ext Art Exam w/ Exercise Interpretation Summary Triphasic Doppler waveforms are noted at ankle level bilaterally. Pulse-volume recordings appear diminished at digital level on the right, but satisfactory at all other levels bilaterally. Resting a nkle-brachial indices are normal bilaterally. The right digital-brachial index is moderately diminished. The lef t digital-brachial index is mildly diminished. The patient was ambulated for 5 minutes at 2 MPH at a 5% grade, fol lowing which ankle pressures augmented bilaterally, a normal physiological response. Arterial flow appears normal at ankle level bilaterally. There is evidence of m oderate arterial occlusive disease at digital level on the right. There is evidence of mild arterial occlusive diseas e at digital level on the left. Ordering Physician: Nnamdi Dalal Referring Physician: NNAMDI DALAL MD Performed By: Lauro Muñiz RVT
== END | disposition home or self-care (01) ==
LOC: CVS 13:58
PROVIDERS: PCP Family Medicine; Referring Provider Family Medicine; Visit Provider Family Medicine
DX: R09.89 Other specified symptoms and signs involving the circulatory and respiratory systems (principal)
CPT/HCPCS: 93924